=== PATIENT | male | born 1965 | race Caucasian/White ===

== ENCOUNTER 2019-02-13 09:16 | Day surgery (SDC) | payer MEDICAID, OTHER ==
[2019-02-08 08:36] LABS: HEMATOCRIT 43.6 % (37.9-51.0); HEMOGLOBIN 14.7 g/dL (13.5-17.0); MEAN CORPUSCULAR HEMOGLOBIN 30.3 pg (27.0-33.4); MEAN CORPUSCULAR HGB CONC 33.6 g/dL (32.0-36.0); MEAN CORPUSCULAR VOLUME 90 fl (80-97); PLATELET COUNT 217 10^3/uL (150-450); RED BLOOD COUNT 4.84 10^6/uL (4.35-5.55); WHITE BLOOD COUNT 6.2 10^3/uL (4.0-10.5)
[~2019-02-13 09:16] MED LIST: ACETAMINOPHEN 325 MG TABLET PO PRN; CEFAZOLIN 1 GM/D5W RTU 1 GM/50 ML RTUPB IV ONE; CEFAZOLIN 1 GM/D5W RTU 1 GM/50 ML RTUPB IV PRN; FENTANYL CITRATE INJ/PF 250 MCG/5 ML AMPULE ONE; LACTATED RINGERS 1000 ML IV PRN; LIDOCAINE 0.5% INJ-PF (5 MG/ML) 50 ML SDV SUBCUT PRN; MIDAZOLAM 2 MG/2 ML INJ ONE; PROPOFOL INJ 200 MG/20 ML VIAL IV ONE
[2019-02-13] MEDS ORDERED: BUPIVACAINE HCL 0.25 % INJ/PF (2.5 MG/1 ML) 30 ML VIAL ONE (10:21)
[2019-02-13] MEDS: BUPIVACAINE INJ/PF LIPOSOME/PF 266 MG/20 ML SDV ONE ×2 (11:05→11:26)
[2019-02-13] MEDS ORDERED: PROMETHAZINE HCL INJ 25 MG/1 ML VIAL IV PRN ×2 (11:08)
[2019-02-13] MEDS ORDERED: FENTANYL CITRATE INJ/PF 100 MCG/2 ML AMPUL IV PRN ×3 (11:08)
[2019-02-13] MEDS ORDERED: OXYCODONE-ACETAMINOPHEN 5-325 MG TABLET PO PRN ×3 (11:08→11:55)
[2019-02-13] MEDS ORDERED: DIPHENHYDRAMINE HCL 50 MG/ML VIAL IV PRN (11:08)
[2019-02-13] MEDS ORDERED: MORPHINE SULFATE 10 MG/ML INJ IV PRN (11:08)
[2019-02-13] MEDS ORDERED: MEPERIDINE HCL/PF INJ 25 MG/1 ML DISP.SYRIN IV PRN (11:08)
[2019-02-13] MEDS ORDERED: EPHEDRINE SULFATE INJ 50 MG/1 ML AMPULE ONE (11:15)
--- NOTE | 2019-02-13 11:46 | Operative Report ---
Operative Report DATE OF SURGERY: 02/13/19 PREOPERATIVE DIAGNOSIS: Right inguinal hernia POSTOPERATIVE DIAGNOSIS: Same, direct OPERATION: 1. Right inguinal exploration. 2. Right inguinal herniorrhaphy with large Prolene hernia system SURGEON: ALEX AGUIAR 1ST METAL FABRICATOR HELPER: JIMMY TADEO ANESTHESIA: GA TISSUE REMOVED OR ALTERED: Hernia sac COMPLICATIONS: None ESTIMATED BLOOD LOSS: Scant INTRAOPERATIVE FINDINGS: See below PROCEDURE: Patient was seen in the preop holding her with a right inguinal area was marked. Is then taken the main operating where general anesthesia was induced via LMA. The right inguinal area was prepped and draped in a sterile fashion Surgical plan and surgical timeout were conducted. Lab mitchell were identified for a standard right inguinal herniorrhaphy incision. Of note the hernia was reduced. The skin was anesthetized with quarter percent Marcaine. A diagonally oriented right inguinal herniorrhaphy incision was made with a #10 blade. Subcutaneous tissue, Ashlyn's fascia divided as encountered with electrocautery and gentle traction. The external oblique aponeurosis was anesthetized with quarter percent Marcaine. It was incised with a #10 blade, and opened along the direction of its fibers. The ilioinguinal nerve was identified and spared throughout the dissection. Superior and inferior fascial flaps were mobilized. The contents of the inguinal canal were now analyzed. There is a moderate sized inguinal hernia, direct, and no evidence of indirect inguinal hernia. There was no cord lipoma. Cord contents were surrounded with a [place] drain. The very nicely defined direct inguinal hernia was dissected from all surrounding tissue very easily, to the point of its origination from the floor of the inguinal canal. It occupied approximately 25% of the inguinal floor. The now amputated and passed off to pathology. The underlying retroperitoneal fat was reduced, and using retractors, a pocket of retroperitoneal space was developed using blunt dissection. The retroperitoneal fat was swept off of the pelvic floor medially inferiorly laterally and superiorly. We now brought onto the field a non-, large, Ethicon Prolene hernia system, and deployed it by unfolding the inner component into the retroperitoneal pocket. We allowed the patient to come out of Trendelenburg, and trimmed the external component to the appropriate configuration. An upside down U was cut into the mesh at the 7 o'clock position. The mesh was now secured to Poupart's ligament, conjoined tendon and inguinal ligament laterally with approximately 8-0 PDS sutures. External oblique aponeurosis closed with a 2-0 Vicryl suture, Ashlyn's with 3-0 Vicryl skin with 3-0 Vicryl and wound closed with the Dermabond glue. 20 cc of full-strength Exparel deployed into subcutaneous tissue. Patient tolerated the procedure well, extubated, taken to recovery in stable condition. The physician personal care assistant, Ms. Breaux, provided assistance during this case by: Assisting retracting tissue, instillation of local anesthesia and closure of skin incisions.
--- NOTE | 2019-02-13 11:51 | Discharge Summary ---
Discharge Summary (SDC) - Discharge Final Diagnosis: Right inguinal hernia, status post right herniorrhaphy Date of Surgery: 02/13/19 Discharge Date: 02/13/19 Condition: Good Treatment or Instructions: [facility] [address], [place] [address] Discharge Instructions: Open Abdominal Procedures (Hernia, Bowel Surgery) 1.General Information: a. DO NOT DRIVE a car or operative machinery for 1-2 weeks or as long as taking Narcotic pain medication. b. DO NOT consume alcohol, tranquilizers, sleeping medication, or any non- prescribed medication for 24 hours unless approved by your doctor or as long as taking pain medication. c. DO NOT make important decisions or sign any important papers for the first 24 hours after surgery. d. When discharged home the same day as surgery have a responsible person with you the first night. 2.Activity Restriction: 4 weeks; a. Avoid heavy lifting (> 10-15 lbs), straining abdominal muscles and sports, mowing lawn, vacuum dumper mold cleaner and bending over a lot. b. Walking is important to avoid blood clots in the legs and deep breathing can prevent pneumonia. c. If it fine to go for walks, up and down steps, and ride in a car. 3.Treatment: a. You may remove dressing or Band-Aids the day after surgery and shower then daily is fine, but you should not bathe in a tub or go swimming for 2 weeks. b. If you have paper strips (steri strips) on the skin, do not remove them as they will fall off in the coming weeks. Pat them dry after your shower. Sutures beneath the paper strips dissolve. If you have skin sutures or metal mari they will be removed on your follow up visit. They may also get wet with a shower. c. Do not use oils, powders, or lotion on your incision. 4.Medications: a. b. Stop the narcotic when able since you cannot take it and drive and they cause constipation. You may switch to plain Tylenol, Advil, or Aleve as you transition from the narcotic. Many adults find good pain relief with Advil 600-800 mg three times a day with meal to work well and avoid narcotic use. High dose Advil should only be used for short courses since it can cause indigestion, ulcer bleeding in the stomach and kidney problems. c. You may resume all normal medications unless a change is specified by your doctors. d. a. If going home the same day as surgery start with clear liquids, and if you do well then advance to normal foods low inf fat and protein. Smaller portion size may be masterson the first night. b. When discharged after hospital stay you may resume a normal diet. 6.Notify Physician If: a. Pain is not relieved by pain medication b. Persistent nausea and vomiting c. Chills, fever (above 101) d. Persistent bleeding or swelling at the operative site e. Unable to urinate for 6-8 hours f. Increased redness, drainage, or foul smelling discharge from incision 7. Follow Up Care: a. Please call our office to schedule an appointment with your doctor for 2 weeks. In the event of any postoperative problems or questions you may call our office during business hours or the On-Call surgeon through the combat systems operator mine warfare at [facility]. [facility] [phone] [facility] [phone] (Ask for the surgeon client operations manager) b. I understand the instructions for my postoperative care as described above and a copy has been given to me. Witness Patient/Significant Other Date Discharge Diet: As Tolerated Discharge Activity: No Lifting Over 10 Pounds, No Lifting/Push/Pulling
[2019-02-13] MEDS ORDERED: OXYCODONE-ACETAMINOPHEN 5-325 MG TABLET ONE (12:35)
[2019-02-13] MEDS ORDERED: PHENYLEPHRINE HCL INJ/PF 10 MG/1 ML SDV ONE (14:10)
[2019-02-13] MEDS ORDERED: ONDANSETRON HCL INJ/PF 4 MG/2 ML SDV ONE (14:10)
[2019-02-13] MEDS ORDERED: LIDOCAINE 2% INJ-PF (20 MG/ML) 2 ML AMPUL ONE (14:10)
[2019-02-13] MEDS ORDERED: ROCURONIUM BROMIDE INJ 50 MG/5 ML VIAL IV ONE (14:10)
[2019-02-13] MEDS ORDERED: DEXAMETHASONE SOD PHOSPHATE INJ 4 MG/1 ML VIAL ONE (14:10)
[2019-02-13 17:40] VITALS: BP 106/76
== END 2019-02-13 13:40 | disposition home or self-care (01) ==
LOC: OROUT 09:16
PROVIDERS: ATTEND Surgery
DX: K40.90 Unilateral inguinal hernia, without obstruction or gangrene, not specified as recurrent (principal); I10 Essential (primary) hypertension; M54.9 Dorsalgia, unspecified; Z87.891 Personal history of nicotine dependence; Z79.899 Other long term (current) drug therapy; G89.4 Chronic pain syndrome
CPT/HCPCS: 36415; 85027; 88302 ×2; 00830; 49505; C1781; J2250; J0690; J3490 ×3; J1100; J3010; J2370; J2405; J2704; C9290; 830